=== PATIENT | male | born 1990 | race Caucasian/White ===

== ENCOUNTER 2024-08-26 13:33 | Emergency (ER) | payer OTHER ==
[~2024-08-26] VITALS: Ht 182.9 cm; Wt 103.4 kg
[2024-08-26 13:37] VITALS: PULSE 91; RESP 18; TEMP 98.7; O2SAT 100
[2024-08-26] MEDS: TETRACAINE HCL 0.5% OPTH SOLN 4 ML BTL OP ONE (14:32)
== END 2024-08-26 14:44 | disposition home or self-care (01) ==
LOC: ER 13:38
DX: H57.04 Mydriasis (principal); F17.210 Nicotine dependence, cigarettes, uncomplicated
CPT/HCPCS: 99283